=== PATIENT | male | born 1985 | race African-American/Black ===

== ENCOUNTER 2019-01-09 19:26 | Emergency (ER) | payer MEDICAID ==
[~2019-01-09] VITALS: Ht 167.6 cm; Wt 95.5 kg
[2019-01-09 19:55] VITALS: Ht 167.6 cm; Wt 95.5 kg
[2019-01-09] MEDS ORDERED: ZANAFLEX4 MG PO (21:49)
[2019-01-09] MEDS ORDERED: OMEPRAZOLE20 M1 PO (21:49)
[2019-01-09] MEDS ORDERED: VOLTAREN75 MG PO (21:49)
[2019-01-09 22:00] VITALS: BP 137/88
== END 2019-01-09 22:00 | disposition home or self-care (01) ==
LOC: D.ER 19:26
DX: M62.838 Other muscle spasm (principal)